=== PATIENT | male | born 1945 | race Caucasian/White ===

== ENCOUNTER 2018-12-28 19:24 | Emergency (ER) | payer MEDICARE, BC ==
[2018-12-28 19:46] VITALS: BP 168/115; PULSE 76
[2018-12-28] MEDS ORDERED: Ketorolac 30 MG/ML SDV IVPUSH ONE (20:29)
--- NOTE | 2018-12-28 20:39 | EDM.PDOC ---
ED HPI GENERAL MEDICAL PROBLEM - General Chief Complaint: Abdominal Pain Stated Complaint: LEFT SIDE STOMACH & BACK PAIN Time Seen by Provider: 12/28/18 20:00 Source of Information: Reports: Patient, Family History Limitations: Reports: No Limitations - History of Present Illness INITIAL COMMENTS - FREE TEXT/NARRATIVE: 73-year-old male with significant left lower quadrant pain radiating around to the left flank for the past 4 hours. No nausea or vomiting. Pain started in the abdomen. No urinary symptoms. No fevers or chills. Pain started fairly suddenly. Onset: Sudden Duration: Hour(s): (4 hours) Location: Reports: Abdomen (Left lower quadrant initially, now radiating around to the left flank) Quality: Reports: Sharp Associated Symptoms: Reports: No Other Symptoms left abd/ flank Pain Score (Numeric/FACES): 8 - Related Data Allergies Allergy/AdvReac Type Severity Reaction Status Date / Time No Known Allergies Allergy Verified 12/28/18 19:44 Home Meds: Home Meds Apixaban [Eliquis] 1 tab PO BID 10/20/15 [History] atorvaSTATin [Lipitor] 40 mg PO BEDTIME 10/20/15 [History] Amiodarone [Cordarone] 200 mg PO BID #60 tablet 10/25/15 [Rx] Diltiazem HCl [Cardizem] 120 mg PO DAILY #0 10/25/15 [Rx] Furosemide [Lasix] 80 mg PO DAILY #30 tablet 10/25/15 [Rx] Metoprolol Succinate 100 mg PO DAILY #30 tab.er.24h 10/25/15 [Rx] Latanoprost 1 drop TOP DAILY 12/28/18 [History] Past Medical History HEENT History: Reports: Impaired Vision Cardiovascular History: Reports: Afib, High Cholesterol, Hypertension, Other ( See Below) Other Cardiovascular History: essential hypertension, dyslipidemia Genitourinary History: Reports: Other (See Below) Other Genitourinary History: essential hypertension Musculoskeletal History: Reports: Osteoarthritis Other Musculoskeletal History: DJD Neurological History: Reports: Migraines Endocrine/Metabolic History: Reports: Other (See Below) Other Endocrine/Metabolic History: hyperglycemia Hematologic History: Reports: Idiopathic Thrombocytopenia, Other (See Below) Other Hematologic History: elevated bilirubin - Infectious Disease History Infectious Disease History: Reports: Chicken Pox Other Infectious Disease History: patient unaware - Past Surgical History GI Surgical History: Reports: Colonoscopy Musculoskeletal Surgical History: Reports: Hip Replacement, Other (See Below) Social & Family History - Family History Cardiac: Reports: CAD - Tobacco Use Smoking Status *Q: Never Smoker Second Hand Smoke Exposure: No - Caffeine Use Caffeine Use: Reports: Soda - Recreational Drug Use Recreational Drug Use: No ED ROS GENERAL - Review of Systems Review Of Systems: See Below Constitutional: Denies: Fever, Chills, Malaise HEENT: Reports: No Symptoms Respiratory: Denies: Shortness of Breath Cardiovascular: Reports: Other (Chronic lower extremity edema). Denies: Chest Pain GI/Abdominal: Reports: Abdominal Pain. Denies: Nausea, Vomiting : Reports: Flank Pain Skin: Reports: No Symptoms (left side) Neurological: Reports: No Symptoms ED EXAM, GENERAL - Physical Exam Exam: See Below Exam Limited By: No Limitations General Appearance: Alert, No Apparent Distress (Looks uncomfortable but not distressed) Eye Exam: Bilateral Eye: Normal Inspection Head: Atraumatic Respiratory/Chest: No Respiratory Distress, Lungs Clear GI/Abdominal: Soft, Non-Tender Extremities: Other (1+ symmetric lower extremity edema below the knees) Neurological: Alert, Oriented Psychiatric: Normal Affect, Normal Mood Skin Exam: Warm, Dry Course - Vital Signs Last Recorded V/S: Last Vital Signs Temp 98.5 F 12/28/18 19:50 Pulse 76 12/28/18 19:50 Resp 16 12/28/18 19:50 BP 168/115 H 12/28/18 19:50 Pulse Ox 95 12/28/18 19:50 - Orders/Labs/Meds Meds: Medications Discontinued Medications Generic Name Dose Route Start Last Admin Trade Name Jeferson PRN Reason Stop Dose Admin Ketorolac Tromethamine 30 mg 12/28/18 20:29 12/28/18 20:35 Toradol IVPUSH 12/28/18 20:30 30 mg ONETIME ONE Administration - Re-Assessments/Exams Free Text/Narrative Re-Assessment/Exam: 12/28/18 20:[address] of the abdomen and pelvis without contrast was obtained. 12/28/18 20:53 Initial viewing of the CT revealed nonobstructing stones and a possible stone in the left UPJ but no hydronephrosis seen. No other acute abdominal findings that would require surgery so the patient was given 30 mg of IV Toradol. We'll await for the official radiology review. IMPRESSION: CT of the abdomen shows a nonobstructive 4 millimeter calculus located at the left UPJ. There are several tiny nonobstructive calculi in the lower pole of the left kidney. Nonspecific isodense structure protruding from the lower poles of both kidneys. Recommend correlation with ultrasound to exclude solid masses. These are probably cysts. CT of the pelvis shows smooth, ahaustral appearance of the sigmoid colon suggesting previous ulcerative colitis. Mild sigmoid diverticulosis with no sign of diverticulitis. Mild enlargement of the prostate. Tiny left pleural effusion. 12/28/18 21:03 Went in to discuss CT report with the patient and his pain had completely resolved. He'll be discharged with 10 more doses of Toradol lack to take every 6 -8 hours for any recurring pain, and return in 24-48 hours if not improving satisfactorily. He will return sooner if worsening such as fever, uncontrolled pain or nausea or vomiting. Departure - Departure Time of Disposition: 21:21 Disposition: Home, Self-Care 01 Condition: Good Clinical Impression: Renal colic on left side - Discharge Information Instructions: Kidney Stones, [id number] Referrals: Tk Martinez MD [Primary Care Provider] - Forms: ED Department Discharge Care Plan Goals: Take 1 Toradol pill every 6-8 hours for any recurring pain. Stay hydrated, and consider rechecking in 48 hours if not significant improvement. Return sooner if worsening such as fever, nausea or vomiting or uncontrolled pain.
--- NOTE | 2018-12-28 20:51 | CRLCT ---
INDICATION: Left flank pain. COMPARISON: COMPARISON DATE TECHNIQUE: CT examination of the abdomen and pelvis was performed without contrast enhancement using 3 mm thick axial sections from the lung bases through the pubic symphysis. Oral contrast was not administered. Please note that all CT scans at this facility use dose modulation, iterative reconstruction, and/or weight-based dosing when appropriate to reduce radiation dose to as low as reasonably achievable. FINDINGS: In the abdomen, the unenhanced liver, spleen, pancreas, and adrenals are normal in appearance. There is a 6.2 centimeter simple cyst arising from the anterior interpolar left kidney. There is a 4.0 centimeter cyst arising from the posterior interpolar right kidney. A nonspecific nodule measuring 1.3 centimeters in diameter arises from the lower pole of the right kidney, isodense to the renal parenchyma. A similar isodense nodule is seen arising from the lower pole measuring 1.8 centimeters. On the left, there is a 2.5 centimeter diameter isodense region projecting from the lower pole. Recommend correlation with ultrasound to exclude solid renal masses. There is no sign of hydronephrosis or hydroureter on the right. There is no sign of right ureteral calculus or hydroureter. On the left, there is a nonobstructive 4 millimeter calculus located at the UVJ, with no sign of dilatation of the left collecting system. There are at least 3 tiny 2 millimeter nonobstructive calculi in the lower pole of the left kidney. The gallbladder is normal in appearance. The abdominal aorta is normal in caliber with no sign of dilatation. There is no sign of retroperitoneal mass or adenopathy. The stomach, loops of small bowel, and colon in the abdomen are normal in appearance. In the pelvis, the small caliber appendix is normal in appearance with no sign of inflammatory process. The loops of small bowel in the pelvis are normal in appearance. There is a smooth, ahaustral appearance of the sigmoid colon suggesting previous ulcerative colitis. There is mild diverticulosis of the sigmoid colon with no sign of diverticulitis. The prostate is moderately enlarged. There is otherwise normal in appearance. The urinary bladder is normal in appearance. There is no sign of pelvic or inguinal mass or adenopathy. There is a tiny left pleural effusion. There is mild atelectasis of the posterior left lung base. The lung bases are otherwise clear. There is a right total hip prosthesis with components in anatomic alignment, with no sign of fracture, loosening, or dislocation. There is mild scoliosis of the lumbar spine convex towards the left. There is prominent L3-4 disc degenerative disease on the right, associated with the scoliosis. There is moderate disc degenerative disease at L4-5 and L5-S1. IMPRESSION: CT of the abdomen shows a nonobstructive 4 millimeter calculus located at the left UPJ. There are several tiny nonobstructive calculi in the lower pole of the left kidney. Nonspecific isodense structure protruding from the lower poles of both kidneys. Recommend correlation with ultrasound to exclude solid masses. These are probably cysts. CT of the pelvis shows smooth, ahaustral appearance of the sigmoid colon suggesting previous ulcerative colitis. Mild sigmoid diverticulosis with no sign of diverticulitis. Mild enlargement of the prostate. Tiny left pleural effusion. Please note that all CT scans at this facility use dose modulation, iterative reconstruction, and/or weight-based dosing when appropriate to reduce radiation dose to as low as reasonably achievable. Dictated by Wilder Shin MD @ Dec 28 2018 8:38PM Signed by Dr. Wilder Shin @ Dec 28 2018 8:50PM
== END 2018-12-28 21:21 | disposition home or self-care (01) ==
LOC: JP.ED 19:24
DX: N20.0 Calculus of kidney (principal)
CPT/HCPCS: 74176; 96374; 99284; J1885; 99283

== ENCOUNTER 2020-07-14 06:27 | Day surgery (SDC) | payer MEDICARE, BC ==
[2020-07-14] MEDS ORDERED: Sodium Chloride 0.9% 1,000 ML IV SCH (07:00)
[2020-07-14] MEDS ORDERED: fentaNYL 100 MCG/2 ML SDV ONE (07:18)
[2020-07-14] MEDS ORDERED: Propofol 200 MG/20 ML SDV ONE (07:18)
[2020-07-14 10:18] VITALS: BP 113/80; PULSE 74
--- NOTE | 2020-07-14 14:24 | OR ---
DATE OF PROCEDURE: 07/14/2020 SURGEON: Ed Sanchez MD PROCEDURE: Colonoscopy. FINDINGS: Diverticulosis, mild. COMPLICATIONS: None. B[employer] HOLLOW HANDLE: None. ANESTHESIA: MAC. PREOPERATIVE DIAGNOSIS: Screening colonoscopy. POSTOPERATIVE DIAGNOSIS: Screening colonoscopy. RISKS: Risks, benefits, alternatives, and limitations including but not limited to infection, bleeding, perforation, and false positives and false negatives were explained to the patient who wished to proceed. PROCEDURE IN DETAIL: The patient was placed in left lateral decubitus position. Digital rectal exam was performed without abnormality. Scope was introduced and advanced atraumatically to the ileocecal valve. A photo was taken of the appendiceal orifice. The scope was brought back to the ascending, transverse, and descending colon and retroflexed. No evidence of old or new blood. No masses. No polyps. Diverticulosis would be described as mild, mostly limited to sigmoid colon without evidence of diverticulitis or bleeding. No abnormalities on retroflexed. The prep was acceptable. Approximately 90% of luminal surface could be seen. Greater than 8 minutes was spent removing the scope. The patient tolerated the procedure well. Ed Sanchez MD /[id number]
== END 2020-07-14 09:00 | disposition home or self-care (01) ==
LOC: JP.SDS 06:27
PROVIDERS: ATTEND Surgery
DX: Z12.11 Encounter for screening for malignant neoplasm of colon (principal); K57.30 Diverticulosis of large intestine without perforation or abscess without bleeding; I13.0 Hypertensive heart and chronic kidney disease with heart failure and stage 1 through stage 4 chronic kidney disease, or unspecified chronic kidney disease; I50.9 Heart failure, unspecified; N18.9 Chronic kidney disease, unspecified; I48.91 Unspecified atrial fibrillation; E66.9 Obesity, unspecified; Z68.31 Body mass index [BMI] 31.0-31.9, adult
CPT/HCPCS: 36415; 84132; G0121; J2704; J3010; J7030

== ENCOUNTER 2023-05-12 16:40 | Emergency (ER) | payer OTHER, MEDICARE, BC ==
[2023-05-12 18:52] LABS: BASOPHILS ABSOLUTE AUTO 0.03 K/uL (0.00-0.10); BASOPHILS PERCENT AUTO 0.3 % (0.1-1.3); EOSINOPHILS ABSOLUTE AUTO 0.07 K/uL (0.00-0.40); EOSINOPHILS PERCENT AUTO 0.8 % (0.0-5.4); HEMATOCRIT 49.8 % (38.4-49.7); HEMOGLOBIN 16.9 g/dL (12.9-16.9); IMMATURE GRAN ABSOLUTE AUTO 0.04 K/uL (0.00-0.23); IMMATURE GRAN PERCENT AUTO 0.5 % (0.0-0.7); LYMPHOCYTES ABSOLUTE AUTO 1.03 K/uL (0.8-3.3); LYMPHOCYTES PERCENT AUTO 11.7 % (11.4-47.7); MEAN CORPUSCULAR HGB CONC 33.9 g/dL (31.6-35.5); MEAN CORPUSCULAR VOLUME 91.4 fL (81.4-99.0); MONOCYTES ABSOLUTE AUTO 0.81 K/uL (0.20-0.90); MONOCYTES PERCENT AUTO 9.2 % (3.3-12.6); NEUTROPHILS ABSOLUTE AUTO 6.79 K/uL (1.0-7.6); NEUTROPHILS PERCENT AUTO 77.5 % (40.0-78.1); PLATELET COUNT,PLT 157 K/uL (130-375); RED BLOOD CELL COUNT 5.45 M/uL (4.14-5.76); WHITE BLOOD CELL COUNT,WBC 8.8 K/uL (3.2-11.0)
[2023-05-12 19:12] LABS: INR 1.1; PROTHROMBIN TIME 11.1 sec (9.2-10.6); PTT,PARTIAL THROMBOPLSTIN TIME 25.6 sec (21.8-27.3)
[2023-05-12 19:13] LABS: ALANINE AMINOTRANSFERASE,ALT 21 U/L (12-78); ALBUMIN 3.6 g/dL (3.4-5.0); ALKALINE PHOSPHATASE 107 U/L (46-116); AMYLASE 70 U/L (25-115); ASPARTATE AMNIOTRANSFERASE,AST 18 U/L (15-37); BLOOD UREA NITROGEN,BUN 27 mg/dL (7-18); CARBON DIOXIDE,CO2 28 mmol/L (21-32); CHLORIDE,CL 104 mmol/L (100-108); CREATININE 1.4 mg/dL (0.8-1.3); EST CRCL DRUG DOSING (CG) 51.38 mL/min; ESTIMATED GFR 52 mL/min (>60); GLUCOSE RANDOM 110 mg/dL (74-106); POTASSIUM,K 4.6 mmol/L (3.6-5.2); PROTEIN TOTAL,TP 7.2 g/dL (6.4-8.2); SODIUM,NA 139 mmol/L (140-148)
[2023-05-12 19:14] LABS: ANION GAP 11.6 mmol/L (5.0-14.0)
[2023-05-12] MEDS ORDERED: Acetaminophen Soln 650 MG/20.3 ML UD Cup PO ONE (19:44)
[2023-05-12] MEDS: Sodium Chloride 0.9% 50 ML IV SCH (19:56)
[2023-05-12] MEDS: Iopamidol 612 MG/ML 100 ML Bottle IV SCH (19:56)
[2023-05-12] MEDS: Sodium Chloride 0.9% 1,000 ML IV SCH (20:02)
[2023-05-12 20:12] LABS: APPEARANCE,URINE CLEAR (CLEAR); BILIRUBIN,URINE NEGATIVE (NEGATIVE); COLOR,URINE YELLOW (YELLOW); GLUCOSE,URINE NEGATIVE (NEGATIVE); KETONES,URINE NEGATIVE (NEGATIVE); LEUKOCYTE ESTERASE,URINE TRACE (NEGATIVE); NITRITE,URINE NEGATIVE (NEGATIVE); OCCULT BLOOD,URINE TRACE-INTACT (NEGATIVE); PROTEIN,URINE NEGATIVE (NEGATIVE); UROBILINOGEN,URINE 0.2 EU/dL (0.2-1.0)
[2023-05-12 20:15] LABS: AMORPHOUS SEDIMENT,URINE NOT SEEN; BACTERIA,URINE RARE; EPITHELIAL CELLS,URINE RARE; MUCUS,URINE RARE; RBC,URINE 0-5 (0-5); WBC,URINE 0-5 (0-5)
[2023-05-12 20:16] LABS: AMPHETAMINES SCREEN, URINE NEGATIVE (NEGATIVE); BARBITURATE SCREEN,URINE NEGATIVE (NEGATIVE); BENZODIAZEPINES SCREEN,URINE NEGATIVE (NEGATIVE); METHADONE SCREEN, URINE NEGATIVE (NEGATIVE); METHAMPHETAMINES SCREEN, URINE NEGATIVE (NEGATIVE); OXYCODONE SCREEN,URINE NEGATIVE (NEGATIVE); PROPOXYPHENE SCREEN,URINE NEGATIVE (NEGATIVE); THC SCREEN,URINE 50 NG/ML NEGATIVE (NEGATIVE)
[2023-05-12 21:31] VITALS: BP 132/79; PULSE 80
== END 2023-05-12 21:30 | disposition home or self-care (01) ==
LOC: JP.ED 16:40
DX: S01.81XA Laceration without foreign body of other part of head, initial encounter (principal); S09.8XXA Other specified injuries of head, initial encounter; I48.91 Unspecified atrial fibrillation; E78.00 Pure hypercholesterolemia, unspecified; I13.0 Hypertensive heart and chronic kidney disease with heart failure and stage 1 through stage 4 chronic kidney disease, or unspecified chronic kidney disease; I50.42 Chronic combined systolic (congestive) and diastolic (congestive) heart failure; N18.9 Chronic kidney disease, unspecified; Z86.19 Personal history of other infectious and parasitic diseases; Z79.01 Long term (current) use of anticoagulants; Z79.899 Other long term (current) drug therapy; V84.0XXA Driver of special agricultural vehicle injured in traffic accident, initial encounter
CPT/HCPCS: 36415; 70450; 71260; 72125; 74177; 76377; 80053; 80305; 80307; 81001; 82150; 83605; 83690; 85025; 85610; 85730; 93005; 96360; 99001; 99284; J3490; J7030; Q9967

== ENCOUNTER 2024-06-25 11:22 | Emergency (ER) | payer MEDICARE, BC ==
[2024-06-25 11:45] VITALS: BP 103/65; PULSE 69
== END 2024-06-25 14:03 | disposition home or self-care (01) ==
LOC: JP.ED 11:22
DX: R04.0 Epistaxis (principal); E78.00 Pure hypercholesterolemia, unspecified; I10 Essential (primary) hypertension; Z79.899 Other long term (current) drug therapy
CPT/HCPCS: 99282; 99283

== ENCOUNTER 2024-12-21 16:56 | Emergency (ER) | payer MEDICARE, BC ==
[2024-12-21 17:15] VITALS: BP 119/75; PULSE 80
== END 2024-12-21 18:15 | disposition home or self-care (01) ==
LOC: JP.ED 16:56
DX: R04.0 Epistaxis (principal); I11.0 Hypertensive heart disease with heart failure; I50.9 Heart failure, unspecified; E78.00 Pure hypercholesterolemia, unspecified; Z79.899 Other long term (current) drug therapy
CPT/HCPCS: 99283